=== PATIENT | female | born 1965 | race Caucasian/White ===

== ENCOUNTER 2018-11-18 20:41 | Emergency (ER) | payer MEDICAID, OTHER ==
[~2018-11-18] VITALS: Ht 160 cm; Wt 83.5 kg
[2018-11-18 20:44] VITALS: Ht 160 cm; Wt 83.5 kg
[2018-11-18] MEDS ORDERED: SOD CHLORIDE 0.9% 1,000 ML IV STA (22:23)
[2018-11-18] MEDS ORDERED: ONDANSETRON 4 MG INJ IV STA (22:23)
--- NOTE | 2018-11-19 00:46 | ERD ---
ER Documentation Chief Complaint Chief Complaint L abd pain since yesterday d/t injury denies vomiting only nauseated HPI This is a 55-year-old female with a past medical history of previous C-sections who reports left-sided abdominal pain related to a recent trauma. The patient was putting things away at home when she fell landing on her left side. She sustained a small hematoma and bruising to the left lower quadrant of the a bdomen. She endorses superficial tenderness around the site. She also endorses mild nausea, but she has not vomited. Her pain are exacerbated by movement and palpation. She does not endorse any alleviating factors. She denies any constipation or diarrhea. She has not had any black or bloody or tarry stool. She denies dysuria or hematuria or urgency or frequency. She does not endorse any other trauma or injury. The patient denies feeling sick recently. The patient denies fever or chills. The patient has had no headache or vision changes. The patient does not endorse neck or back pain. The patient denies lightheadedness or dizziness. The patient has had no chest pain or trouble breathing. The patient has had no focal deficits. The patient has had no weakness or numbness or tingling to the face or extremities. ROS All systems reviewed and are negative except as per history of present illness. Medications Home Meds No Active Prescriptions or Reported Meds Allergies Allergies: Coded Allergies: No Known Allergy (Unverified , 11/18/18) PMhx/Soc Medical and Surgical Hx: pt denies Medical Hx History of Surgery: Yes (4 ) Anesthesia Reaction: No Hx Neurological Disorder: No Hx Respiratory Disorders: No Hx Cardiac Disorders: No Hx Psychiatric Problems: No Hx Miscellaneous Medical Probl: No Hx Alcohol Use: No Hx Substance Use: No Hx Tobacco Use: No Smoking Status: Never smoker Physical Exam Vitals Vital Signs Date Temp Pulse Resp B/P (MAP) Pulse Ox O2 O2 Flow FiO2 Time Delivery Rate 11/19/18 68 16 116/78 99 Room Air 01:55 (91) 11/19/18 67 16 129/71 97 Room Air 00:57 (90) 11/18/18 98.4 84 20 141/67 99 20:44 (91) Physical Exam Const: No acute distress Head: Atraumatic Eyes: Normal Conjunctiva ENT: Normal External Ears, Nose and Mouth. Neck: Full range of motion. No meningismus. Resp: Clear to auscultation bilaterally Cardio: Regular rate and rhythm, no murmurs Abd: Soft, non tender, non distended. Normal bowel sounds Skin: No petechiae or rashes Back: No midline or flank tenderness Ext: No cyanosis, or edema Neur: Awake and alert Psych: Normal Mood and Affect Result Diagram: 11/18/18 2310 11/18/18 2310 Results 24 hrs Laboratory Tests Test 11/18/18 23:10 White Blood Count 6.5 10^3/ul Red Blood Count 3.88 10^6/ul Hemoglobin 11.8 g/dl Hematocrit 34.4 % Mean Corpuscular Volume 88.7 fl Mean Corpuscular Hemoglobin 30.4 pg Mean Corpuscular Hemoglobin Concent 34.3 g/dl Red Cell Distribution Width 13.4 % Platelet Count 350 10^3/UL Mean Platelet Volume 10.2 fl Immature Granulocytes % 0.300 % Neutrophils % 66.1 % Lymphocytes % 22.3 % Monocytes % 8.9 % Eosinophils % 1.5 % Basophils % 0.9 % Nucleated Red Blood Cells % 0.0 /100WBC Immature Granulocytes # 0.020 10^3/ul Neutrophils # 4.3 10^3/ul Lymphocytes # 1.5 10^3/ul Monocytes # 0.6 10^3/ul Eosinophils # 0.1 10^3/ul Basophils # 0.1 10^3/ul Nucleated Red Blood Cells # 0.0 10^3/ul Urine Color YELLOW Urine Clarity SLIGHTLY CLOUDY Urine pH 5.0 Urine Specific Vandiver 1.033 Urine Ketones TRACE mg/dL Urine Nitrite NEGATIVE mg/dL Urine Bilirubin NEGATIVE mg/dL Urine Urobilinogen 1+ mg/dL Urine Leukocyte Esterase NEGATIVE Manju/ul Urine Microscopic RBC 7 /HPF Urine Microscopic WBC 1 /HPF Urine Squamous Epithelial Cells FEW /HPF Urine Bacteria FEW /HPF Urine Mucus FEW /HPF Urine Hemoglobin 2+ mg/dL Urine Glucose NEGATIVE mg/dL Urine Total Protein NEGATIVE mg/dl Sodium Level 140 mmol/L Potassium Level 3.7 mmol/L Chloride Level 104 mmol/L Carbon Dioxide Level 27 mmol/L Anion Gap 9 Blood Urea Nitrogen 16 mg/dl Creatinine 0.70 mg/dl Est Glomerular Filtrat Rate mL/min > 60 mL/min Glucose Level 98 mg/dl Calcium Level 9.0 mg/dl Total Bilirubin 0.1 mg/dl Direct Bilirubin 0.00 mg/dl Indirect Bilirubin 0.1 mg/dl Aspartate Amino Transf (AST/SGOT) 27 IU/L Alanine Aminotransferase (ALT/SGPT) 27 IU/L Alkaline Phosphatase 83 IU/L Total Protein 7.1 g/dl Albumin 4.1 g/dl Globulin 3.00 g/dl Albumin/Globulin Ratio 1.36 Lipase 96 U/L Current Medications Medications Dose Sig/Laureano Start Time Status Last (Trade) Ordered Route PRN Stop Time Admin Dose Reason Admin Sodium 1,000 ml @ Q1H STAT 11/18/18 DC 11/18/18 Chloride 1,000 mls/hr IV 22:23 23:36 11/18/18 23:22 Ondansetron 4 mg ONCE STAT 11/18/18 DC 11/18/18 HCl (Zofran IV 22:23 22:23 Inj) 11/18/18 22:24 Procedures/MDM MDM The patient's presentation warrants further investigation. Previous medical records, if available, were reviewed. LABS The patient's laboratory testing was obtained and reviewed. No emergent treatment was required unless described below. CBC: No E/o of systemic infection or thrombocytopenia. Mild normocytic anemia, nonemergent. CMP: No E/o severe acidosis or alkalosis or renal failure or liver disease or diabetic ketoacidosis Lipase: No E/o pancreatitis Urine: No E/o acute infection. + hematuria TREATMENT/DISPOSITION The patient presents with superficial left lower quadrant abdominal pain. The patient has a bruise to that region, and I have high suspicion for an abdominal wall hematoma. It was a ground-level fall. I have low suspicion for an emergent traumatic injury. The patient otherwise has no abdominal tenderness. The patient does not have any evidence of peritonitis. The patient does not have clinical symptoms concerning for mesenteric ischemia or ischemic colitis. The patient does not have right upper quadrant tenderness, and I have low suspicion for gallstones, cholecystitis or biliary colic. The patient does not have any epigastric pain. I have low suspicion for gastritis, PUD or GERD. The patient does not have left upper quadrant tenderness. I have low suspicion for pancreatitis. The patient does not have any right lower quadrant tenderness, or periumbilical tenderness. I have low suspicion for appendicitis. The patient does not have suprapubic tenderness. I have decreased suspicion for cystitis. The patient does not have any black or bloody or tarry stools, and I have low suspicion for diverticulosis or diverticulitis. The patient does not have any flank tenderness or dysuria. I have decreased suspicion for nephrolithiasis or renal colic. The patient does have mild hematuria, but her symptoms are not consistent with a urethral injury. The patient does not have any palpable pulsatile mass or severe abdominal pain radiating to the back. I have low suspicion for aortic aneurysm, dissection or rupture. The patient was treated with IV fluids, Zofran and Toradol with some improvement of her symptoms. DISCHARGE Upon reevaluation of the patient, symptoms have improved. No emergent diagnoses were identified. At this time, I feel that the patient stable for discharge. The patient was instructed to follow-up with a primary care physician in 1-3 days. The patient will be given strict precautions with which to return to the emergency department. Prescriptions: Ibuprofen The patient's blood pressure was elevated at greater than 120/80 while in the emergency department. The patient was otherwise stable with no evidence of hypertensive urgency or emergency. The patient does not require admission for blood pressure control. I have discussed with the patient the risks of hypertension. I have instructed the patient to return to the ER for any new or worsening symptoms including chest pain, shortness of breath, headache, blurred vision, confusion, nausea, vomiting or LOC. I have advised the patient to follow up with the primary care physician for outpatient monitoring and treatment for hypertension in 1-3 days. Disclaimer: Inadvertent spelling and grammatical errors are likely due to EHR/dictation software use and do not reflect on the overall quality of patient care. Note that the electronic time recorded on this note does not necessarily reflect the actual time of the patient encounter. Departure Diagnosis: Primary Impression: Abdominal wall hematoma Encounter type: initial encounter Qualified Codes: S30.1XXA - Contusion of abdominal wall, initial encounter Additional Impressions: Abdominal pain Abdominal location: unspecified location Qualified Codes: R10.9 - Unspecified abdominal pain Hematuria Hematuria type: unspecified type Qualified Codes: R31.9 - Hematuria, unspecified Normocytic anemia Condition: JANNETH Flanagan MD Nov 19, 2018 00:46
[2018-11-19] MEDS ORDERED: KETOROLAC 15 MG INJ IV STA (02:35)
[2018-11-19] MEDS ORDERED: IBUP-1542 PO (02:37)
[2018-11-19 02:51] VITALS: BP 127/72; PULSE 68; RESP 15
== END 2018-11-19 02:51 | disposition home or self-care (01) ==
LOC: E/R 20:41
DX: S30.1XXA Contusion of abdominal wall, initial encounter (principal); R31.9 Hematuria, unspecified; W18.39XA Other fall on same level, initial encounter; Y92.009 Unspecified place in unspecified non-institutional (private) residence as the place of occurrence of the external cause
CPT/HCPCS: 36415; 80053; 81001; 83690; 85025; 96374; 96375; J1885; J2405; J7030; Z7502; Z7610